=== PATIENT | female | born 1995 | race Caucasian/White ===

== ENCOUNTER 2020-08-20 02:27 | Emergency (ER) | payer OTHER ==
--- NOTE | 2020-08-20 03:06 | EDM.PDOC ---
ED HPI GENERAL MEDICAL PROBLEM - General Chief Complaint: Genitourinary Problem Stated Complaint: POSS UTI/26 WKS Time Seen by Provider: 08/20/20 02:38 Source of Information: Reports: Patient History Limitations: Reports: No Limitations - History of Present Illness INITIAL COMMENTS - FREE TEXT/NARRATIVE: Mrs. Romano is a pleasant 25-year-old woman who now presents with a complaint of dysuria, urinary frequency, and urinary urgency since midday yesterday, 08/19/2020. No associated fever or chills, nausea, vomiting, or flank pain. No prior similar symptoms. She has not taken any eony-mdf-lmdjpey or home remedies to try to treat her symptoms. The patient states that she 26 weeks gestation, her first . She states that she was diagnosed with a UTI earlier during this , but that she was asymptomatic. Here in the ED, the patient was initially found to be slightly tachycardic at 104 bpm, otherwise, she is hemodynamically stable, afebrile, saturating 99% on room air. heart tones obtained at triage are 145 bpm. Prior to midday yesterday, the patient denies having a recent fever, chills, sore throat, ear pain, nasal or sinus congestion, cough, dyspnea, chest pain, palpitations, nausea, vomiting, constipation, diarrhea, abdominal pain, urinary symptoms, recent weight gain or weight loss, recent bloody bowel movements or black bowel movements, recent joint aches, headaches, or rashes. The patient does not have a PCP. Her DRUM SANDER OFFBEARER is Dr. Berkley Solomon. Generalized Pain Score (Numeric/FACES): 6 - Related Data Allergies Allergy/AdvReac Type Severity Reaction Status Date / Time No Known Allergies Allergy Verified 08/20/20 02:39 Home Meds: Home Meds Amoxicillin/Clavulanate K [Augmentin 500-125 MG] 1 tab PO Q12H #10 tablet 08/20/20 [Rx] Past Medical History HEENT History: Reports: Impaired Vision : 1 Para: 0 Endocrine/Metabolic History: Reports: Diabetes, Gestational, Obesity/BMI 30+ Social & Family History - Tobacco Use Tobacco Use Status *Q: Never Tobacco User - Caffeine Use Caffeine Use: Reports: Coffee - Alcohol Use Alcohol Use History: No - Recreational Drug Use Recreational Drug Use: No - Living Situation & Occupation Living situation: Reports: , with Spouse 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 ED EXAM, RENAL/ - Physical Exam Exam: See Below Exam Limited By: No Limitations General Appearance: Alert, WD/WN, No Apparent Distress Eye Exam: Bilateral Eye: EOMI, Normal Inspection Ears: Normal External Exam, Hearing Grossly Normal Nose: Normal Inspection Throat/Mouth: Normal Inspection, Normal Lips, Normal Voice, No Airway Compromise Head: Atraumatic, Normocephalic Neck: Normal Inspection, Full Range of Motion Respiratory/Chest: No Respiratory Distress, Lungs Clear, Normal Breath Sounds, No Accessory Muscle Use Cardiovascular: Normal Peripheral Pulses, Regular Rate, Rhythm, No Gallop, No JVD, No Murmur, No Rub GI/Abdominal: Normal Bowel Sounds, Soft, No Distention, No Abnormal Bruit, Tender (palpation of the suprapubic region induces pressure, but not pain), Mass (gravid uterus consistent with dates) Back Exam: Normal Inspection, Full Range of Motion. No: CVA Tenderness (L), CVA Tenderness (R) Extremities: Normal Inspection, Normal Range of Motion, Normal Capillary Refill Neurological: Alert, Oriented, Normal Cognition, No Motor/Sensory Deficits Psychiatric: Normal Affect Skin Exam: Warm, Dry, Intact, Normal Color, No Rash Course - Vital Signs Last Recorded V/S: Last Vital Signs Temp 36.8 C 08/20/20 02:32 Pulse 104 H 08/20/20 02:32 Resp 16 08/20/20 02:32 BP 133/86 08/20/20 02:32 Pulse Ox 99 08/20/20 02:32 - Orders/Labs/Meds Orders: Active Orders 24 hr Category Date Time Status Heart Rate [RC] Click to Edit Care 08/20/20 02:49 Active CULTURE URINE [RM] Stat Lab 08/20/20 03:58 Ordered Labs: Laboratory Tests 08/20/20 Range/Units 03:10 Urine Color Yellow (Yellow) Urine Appearance Clear (Clear) Urine pH 7.0 (5.0-8.0) Ur Specific [place] 1.025 (1.005-1.030) Urine Protein Negative (Negative) Urine Glucose (UA) Negative (Negative) Urine Ketones Negative (Negative) Urine Occult Blood 2+ H (Negative) Urine Nitrite Negative (Negative) Urine Bilirubin Negative (Negative) Urine Urobilinogen 0.2 (0.2-1.0) Ur Leukocyte Esterase Trace H (Negative) Urine RBC 50-75 H (0-5) /hpf Urine WBC 5-10 H (0-5) /hpf Ur Squamous Epith Cells 10-20 H (0-5) /hpf Urine Bacteria Rare (FEW) /hpf Urine Mucus Not seen (FEW) /hpf Meds: Medications Discontinued Medications Generic Name Dose Route Start Last Admin Trade Name Freq PRN Reason Stop Dose Admin Amoxicillin/Clavulanate Potassium 1 tab 08/20/20 04:07 Augmentin 500 Mg\125 Mg PO 08/20/20 04:08 ONETIME STA Cefpodoxime Proxetil 100 mg 08/20/20 03:55 Vantin PO 08/20/20 03:56 ONETIME STA Phenazopyridine HCl 95 mg 08/20/20 04:03 Urinary Pain Relief PO 08/20/20 04:04 ONETIME STA - Re-Assessments/Exams Free Text/Narrative Re-Assessment/Exam: 08/20/20 02:55 As above, the patient developed dysuria, urinary frequency, and urinary urgency without fever, nausea, vomiting, or flank pain, mid-day yesterday. She is 26 weeks gestation with her first . No home treatment. heart tones were 145 at triage. Her physical exam finds only increased pressure sensation with palpation of her suprapubic region, and is otherwise unremarkable. I have ordered a urinalysis to evaluate. 08/20/20 03:58 The patient's urinalysis is remarkable for 2+ occult blood with 50-75 RBCs, trace leukocyte esterase with 5-10 WBCs, nitrate negative with rare bacteria, and 10-20 squamous epithelial cells. While there is less pyuria and bacteriuria than I would expect for the degree of the patient's symptoms, I believe it would be appropriate to treat her for a UTI. Current guidelines recommend Cefpodoxime 100 mg po BID x 5 days. In addition, I will start the patient on phenazopyridine (Pyridium, Azo), which is category B. I have ordered a urine culture. 08/20/20 04:06 Notified by Lynn WATTS that we do not have Cefpodoxime in-house. I will therefore start her on Augmentin. 08/20/20 04:15 The above plan was discussed with the patient, who is agreeable. She may take [id number] Azo, and she should stay adequately hydrated. I would like her to follow-up with the office of Dr. Solomon in 3 days to check on her urine culture results. Departure - Departure Time of Disposition: 04:09 Disposition: Home, Self-Care 01 Condition: Good Clinical Impression: UTI (urinary tract infection), and not yet delivered in third trimester - Discharge Information *PRESCRIPTION DRUG MONITORING PROGRAM REVIEWED*: Not Applicable *COPY OF PRESCRIPTION DRUG MONITORING REPORT IN PATIENT ELI: Not Applicable Prescriptions: Amoxicillin/Clavulanate K [Augmentin 500-125 MG] 1 tab PO Q12H #10 tablet Referrals: Berkley Solomon MD [Primary Care Provider] - Forms: ED Department Discharge Additional Instructions: You were seen in the emergency room for painful urination with the need to urinate often and the sensation of inadequate urination even though you just finished urinating, since midfriday. Work-up in the ER included a urinalysis, which indicates a possible urinary tract infection. A sample of your urine has been sent for a urine culture. You have been started on the antibiotic Augmentin, and a prescription for Aug mentin has been sent to the [facility], located just south and across [address] from [facility]. The pharmacy will be open between noon and 4:00 this afternoon. Take 1 tablet of Augmentin every 12 hours, starting this evening, 08/20/2020, as prescribed. Finish the entire prescription unless told otherwise by Dr. Solomon. In addition to Augmentin, you may also take the bladder pain reliever Azo, which is available [id number]. You may take 1 tablet 3 times a day, for 2 days, for a total of 6 doses. Don't forget that you received 1 dose already in the ER. Azo will turn your urine orange, which is normal. Stay adequately hydrated. It does not really matter what type of fluid you drink. Follow-up with the office of your Operators Teacher, Dr. Berkley Solomon, this coming 08/23/2020, to check on your urine culture results, to make sure that you are on the correct antibiotic. If any other problems, please do not hesitate to return to the ER. Sepsis Event Note (ED) - Evaluation Sepsis Screening Result: No Definite Risk - Focused Exam Vital Signs: Vital Signs Temp Pulse Resp BP Pulse Ox 08/20/20 02:32 36.8 C 104 H 16 133/86 99 - My Orders Last 24 Hours: My Active Orders 08/20/20 02:49 Heart Rate [RC] Click to Edit 08/20/20 03:58 CULTURE URINE [RM] Stat - Assessment/Plan Last 24 Hours: My Active Orders 08/20/20 02:49 Heart Rate [RC] Click to Edit 08/20/20 03:58 CULTURE URINE [RM] Stat
[2020-08-20] MEDS ORDERED: Phenazopyridine 95 MG Tab PO STA (04:03)
[2020-08-20] MEDS ORDERED: Amoxicillin/Clavulanate K 500-125 MG Tab PO STA (04:07)
== END 2020-08-20 04:32 | disposition home or self-care (01) ==
LOC: JD.ED 02:27
DX: O23.42 Unspecified infection of urinary tract in pregnancy, second trimester (principal); Z3A.26 26 weeks gestation of pregnancy
CPT/HCPCS: 81001; 87086; 87088; 87186; 99283; A9270

== ENCOUNTER 2020-11-06 19:04 | Inpatient (IN) | payer OTHER ==
[2020-11-06] MEDS ORDERED: Lidocaine 1% 50 ML MDV INJECT ONE (22:29)
[2020-11-06] MEDS ORDERED: Nalbuphine 10 MG/1 ML Vial IVPUSH PRN (22:29)
[2020-11-06] MEDS ORDERED: Sodium Chloride 0.9% 10 ML Syringe FLUSH PRN (22:29)
[2020-11-06] MEDS ORDERED: Calcium Carbonate 500 MG Tab.Chew PO PRN (22:29)
[2020-11-06] MEDS ORDERED: Ondansetron 4 MG/2 ML SDV IVPUSH PRN (22:29)
[2020-11-06] MEDS ORDERED: Ampicillin 2 GM in Sodium Chloride 0.9% 100 ML IV ONE (22:29)
[2020-11-06] MEDS ORDERED: Oxytocin/Lactated Ringers 10 UNIT/1,000 ML BAG IV SCH ×2 (22:30)
[2020-11-06] MEDS ORDERED: ePHEDrine 50 MG/ML SDV IVPUSH PRN (22:50)
[2020-11-06] MEDS ORDERED: diphenhydrAMINE 50 MG/ML SDV IVPUSH PRN (22:50)
[2020-11-06] MEDS: Lactated Ringers 1,000 ML IV SCH (23:24)
[2020-11-07] MEDS ORDERED: Bupivacaine 0.25% 10 ML SDV ONE
--- NOTE | 2020-11-07 00:03 | PCM.LDHP ---
L&D History of Present Illness - General Date of Service: 11/06/20 Admit Problem/Dx: Patient Status Order with Admit Dx/Problem 11/06/20 19:37 Patient Status [ADT] Routine 11/06/20 22:29 Patient Status [ADT] Routine Admission Diagnosis/Problem Admission Diagnosis/Problem Active labor - History of Present Illness Introduction:: 25 year old at 38w2 presented with decreased movement and cramping and bright red bleeding. Having contractions on monitor and appeared in early labor with discomfort. At front was afebrile. One initial elevated temperature and two elevated blood pressure readings. Subsequent blood pressures have been borderline. UA consistent with UTI making evaluation of protein difficult. PNC with myself complicated by gestational diabetes on insulin. COVID in September. 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: Endocrine/Metabolic History: Reports: Diabetes, Gestational, Obesity/BMI 30+ Social & Family History - Caffeine Use Caffeine Use: Reports: Coffee - Living Situation & Occupation Living situation: Reports: , with Spouse 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[employer]) H&P Review of Systems - Review of Systems: Review Of Systems: See Below General: Reports: No Symptoms HEENT: Reports: No Symptoms Pulmonary: Reports: No Symptoms Cardiovascular: Reports: No Symptoms Gastrointestinal: Reports: No Symptoms Genitourinary: Reports: No Symptoms Musculoskeletal: Reports: No Symptoms Skin: Reports: No Symptoms Psychiatric: Reports: No Symptoms Neurological: Reports: No Symptoms Hematologic/Lymphatic: Reports: No Symptoms Immunologic: Reports: No Symptoms L&D Exam - Exam Exam: See Below - OB Specific Contraction Intensity: Moderate Movement: Active Heart Tones: Present Heart Rate (FHR) Variability: Moderate (6-25 bmp) Presentation: Vertex - Kearns Score Kearns Score Cervix Position: Anterior Kearns Score Consistency: Soft Kearns Score Effacement: >80% Kearns Score Dilation: 3-4 cm Kearns Score Infant's Station: -1 ,0 Kearns Score Total: 11 - Exam General: Alert, Oriented HEENT: PERRLA, Conjunctiva Clear, EACs Clear, EOMI, Hearing Intact, Mucosa Moist & [place], Nares Patent, Normal Nasal Septum, Posterior Pharynx Clear, TMs Clear Neck: Supple, Trachea Midline Lungs: Clear to Auscultation Cardiovascular: Regular Rate, Regular Rhythm GI/Abdominal Exam: Normal Bowel Sounds, Soft, Non-Tender, No Organomegaly, No Distention, No Abnormal Bruit Rectal Exam: Normal Exam, Normal Rectal Tone Genitourinary: Normal external exam, Normal bimanual exam, Normal speculum exam Back Exam: Normal Inspection, Full Range of Motion Extremities: Normal Inspection, Normal Range of Motion, Non-Tender, No Pedal Edema, Normal Capillary Refill Skin: Warm, Dry, Intact Psychiatric: Alert, Normal Affect, Normal Mood - Patient Data Lab Results Last 24 hrs: Laboratory Results - last 24 hr 11/06/20 11/06/20 11/06/20 Range/Units 19:50 19:50 20:40 WBC 16.69 H (3.98-10.04) K/mm3 RBC 4.94 (3.98-5.22) M/mm3 Hgb 14.7 (11.2-15.7) gm/dl Hct 43.8 (34.1-44.9) % MCV 88.7 (79.4-94.8) fl MCH 29.8 (25.6-32.2) pg MCHC 33.6 (32.2-35.5) g/dl RDW Std Deviation 48.8 H (36.4-46.3) fL Plt Count 257 (182-369) K/mm3 MPV 11.2 (9.4-12.3) fl Neut % (Auto) 80.7 H (34.0-71.1) % Lymph % (Auto) 10.5 L (19.3-51.7) % [place] % (Auto) 8.1 (4.7-12.5) % Eos % (Auto) 0.2 L (0.7-5.8) Baso % (Auto) 0.1 (0.1-1.2) % Neut # (Auto) 13.46 H (1.56-6.13) K/mm3 Lymph # (Auto) 1.76 (1.18-3.74) K/mm3 [place] # (Auto) 1.35 H (0.24-0.36) K/mm3 Eos # (Auto) 0.04 (0.04-0.36) K/mm3 Baso # (Auto) 0.02 (0.01-0.08) K/mm3 BUN 10 (7-18) mg/dL Creatinine 0.6 (0.55-1.02) mg/dL Est Cr Clr Drug Dosing TNP Estimated GFR (MDRD) > 60 (>60) mL/min Glucose 101 (74-106) mg/dL Uric Acid 3.6 (2.6-6.0) mg/dL AST 12 L (15-37) U/L ALT 20 (14-59) U/L Lactate Dehydrogenase 224 (81-234) U/L Urine Color Yellow (Yellow) Urine Appearance Cloudy H (Clear) Urine pH 7.0 (5.0-8.0) Ur Specific [place] 1.025 (1.005-1.030) Urine Protein 2+ H (Negative) Urine Glucose (UA) Negative (Negative) Urine Ketones Negative (Negative) Urine Occult Blood 3+ H (Negative) Urine Nitrite Positive H (Negative) Urine Bilirubin Negative (Negative) Urine Urobilinogen 1.0 (0.2-1.0) Ur Leukocyte Esterase 1+ H (Negative) Urine RBC 50-75 H (0-5) /hpf Urine WBC 10-20 H (0-5) /hpf Ur Squamous Epith Cells 10-20 H (0-5) /hpf Urine Bacteria Many H (FEW) /hpf Urine Mucus Few (FEW) /hpf Ur Random Creatinine (30.0-125.0) mg/dL U Random Total Protein (0.0-11.8) mg/dL Protein/Creatinin Ratio (0-149) mg/g 11/06/20 Range/Units 20:40 WBC (3.98-10.04) K/mm3 RBC (3.98-5.22) M/mm3 Hgb (11.2-15.7) gm/dl Hct (34.1-44.9) % MCV (79.4-94.8) fl MCH (25.6-32.2) pg MCHC (32.2-35.5) g/dl RDW Std Deviation (36.4-46.3) fL Plt Count (182-369) K/mm3 MPV (9.4-12.3) fl Neut % (Auto) (34.0-71.1) % Lymph % (Auto) (19.3-51.7) % [place] % (Auto) (4.7-12.5) % Eos % (Auto) (0.7-5.8) Baso % (Auto) (0.1-1.2) % Neut # (Auto) (1.56-6.13) K/mm3 Lymph # (Auto) (1.18-3.74) K/mm3 [place] # (Auto) (0.24-0.36) K/mm3 Eos # (Auto) (0.04-0.36) K/mm3 Baso # (Auto) (0.01-0.08) K/mm3 BUN (7-18) mg/dL Creatinine (0.55-1.02) mg/dL Est Cr Clr Drug Dosing Estimated GFR (MDRD) (>60) mL/min Glucose (74-106) mg/dL Uric Acid (2.6-6.0) mg/dL AST (15-37) U/L ALT (14-59) U/L Lactate Dehydrogenase (81-234) U/L Urine Color (Yellow) Urine Appearance (Clear) Urine pH (5.0-8.0) Ur Specific [place] (1.005-1.030) Urine Protein (Negative) Urine Glucose (UA) (Negative) Urine Ketones (Negative) Urine Occult Blood (Negative) Urine Nitrite (Negative) Urine Bilirubin (Negative) Urine Urobilinogen (0.2-1.0) Ur Leukocyte Esterase (Negative) Urine RBC (0-5) /hpf Urine WBC (0-5) /hpf Ur Squamous Epith Cells (0-5) /hpf Urine Bacteria (FEW) /hpf Urine Mucus (FEW) /hpf Ur Random Creatinine 148.6 H (30.0-125.0) mg/dL U Random Total Protein 48.0 H (0.0-11.8) mg/dL Protein/Creatinin Ratio 323.0 H (0-149) mg/g Result Diagrams: 11/06/20 19:50 11/06/20 19:50 Problem List Initiated/Reviewed/Updated: Yes Orders Last 24hrs: Active Orders 24 hr Category Date Time Status Patient Status [ADT] Routine ADT 11/06/20 22:29 Active Activity as Tolerated [RC] PFP Care 11/06/20 22:29 Active Communication Order [RC] ASDIRECTED Care 11/06/20 22:29 Active Communication Order [RC] ASDIRECTED Care 11/06/20 22:51 Active Cooling Warming Measures [RC] ASDIRECTED Care 11/06/20 22:51 Active Heart Tones [RC] ASDIRECTED Care 11/06/20 22:30 Active Non Stress Test [RC] PER UNIT ROUTINE Care 11/06/20 19:37 Active Notify Provider [RC] ASDIRECTED Care 11/06/20 22:50 Active Notify Provider [RC] ASDIRECTED Care 11/06/20 22:51 Active Notify Provider [RC] PFP Care 11/06/20 22:29 Active Notify Provider [RC] PRN Care 11/06/20 22:29 Active Oxygen Therapy [RC] ASDIRECTED Care 11/06/20 22:51 Active Peripheral IV Care [RC] . DIRECTED Care 11/06/20 22:30 Active Pulse Oximetry [RC] ASDIRECTED Care 11/06/20 22:51 Active Pump Management, Intrathecal [RC] ASDIRECTED Care 11/06/20 22:33 Active Urinary Catheter Assessment [RC] ASDIRECTED Care 11/06/20 22:29 Active Vital Signs [RC] ASDIRECTED Care 11/06/20 22:51 Active Vital Signs [RC] PER UNIT ROUTINE Care 11/06/20 19:37 Active Regular Diet [DIET] Diet 11/06/20 Dinner Active CORONAVIRUS COVID-19 MARINA [MOLEC] Stat Lab 11/06/20 22:32 Ordered CULTURE URINE [RM] Stat Lab 11/06/20 20:40 Received RAPID PLASMA REAGIN,RPR [CHEM] Routine Lab 11/06/20 19:50 Received Ampicillin 1 gm Med 11/07/20 02:30 Active Sodium Chloride 0.9% [Normal Saline] 100 ml IV Q4H Bupivacaine/fentaNYL/NS [fentaNYL/Bupivacaine/NS 2 MCG- Med 11/06/20 22:50 Active 0.125% 100 ML] 100 ml EPIDUR ASDIRECTED PRN Calcium Carbonate [Tums] Med 11/06/20 22:29 Active 1,000 mg PO Q2H PRN Lactated Ringers [Ringers, Lactated] 1,000 ml Med 11/06/20 22:30 Active IV ASDIRECTED Nalbuphine [Nubain] Med 11/06/20 22:29 Active 10 mg IVPUSH Q2H PRN Ondansetron [Zofran] Med 11/06/20 22:29 Active 4 mg IVPUSH Q4H PRN Oxytocin/Lactated Ringers [Pitocin in LR 10 Units/1,000 Med 11/06/20 22:30 Active ML] 10 unit in 1,000 ml IV .CONTINUOUS Oxytocin/Lactated Ringers [Pitocin in LR 10 Units/1,000 Med 11/06/20 22:30 Active ML] 10 unit in 1,000 ml IV TITRATE Sodium Chloride 0.9% [Saline Flush] Med 11/06/20 22:29 Active 10 ml FLUSH ASDIRECTED PRN diphenhydrAMINE [Benadryl] Med 11/06/20 22:50 Active 25 mg IVPUSH Q6H PRN ePHEDrine [ePHEDrine sulfate] Med 11/06/20 22:50 Active 5 mg IVPUSH ASDIRECTED PRN fentaNYL [Sublimaze] Med 11/06/20 22:50 Active 100 mcg EPIDUR Q3H PRN Electronic Heart Tones Ext w TOCO [WOMSER] Oth 11/06/20 22:29 Ordered Routine Electronic Heart Tones Internal [WOMSER] Per Unit Oth 11/06/20 22:29 Ordered Routine PIH Panel [OM.PC] Stat Oth 11/06/20 19:37 Ordered Peripheral IV Insertion Adult [OM.PC] Routine Oth 11/06/20 22:29 Ordered Resuscitation Status Routine Resus Stat 11/06/20 19:37 Ordered Medication Orders Calcium Carbonate/Glycine (Tums) 1,000 mg PO Q2H PRN PRN Reason: Indigestion Diphenhydramine HCl (Benadryl) 25 mg IVPUSH Q6H PRN PRN Reason: pruritis Ephedrine Sulfate (Ephedrine Sulfate) 5 mg IVPUSH ASDIRECTED PRN PRN Reason: Hypotension Fentanyl (Sublimaze) 100 mcg EPIDUR Q3H PRN PRN Reason: Pain Fentanyl/Bupivacaine HCl (Fentanyl/Bupivacaine/Ns 2 Mcg-0.125% 100 Ml) 100 ml EPIDUR ASDIRECTED PRN PRN Reason: Pain Lactated Ringer's (Ringers, Lactated) 1,000 mls @ 100 mls/hr IV ASDIRECTED VICKI Last Admin: 11/06/20 23:24 Dose: 100 mls/hr Documented by: LUCA Ampicillin Sodium 1 gm/ Sodium (Chloride) 100 mls @ 200 mls/hr IV Q4H VICKI Oxytocin/Lactated Ringer's (Pitocin In Lr 10 Units/1,000 Ml) 10 unit in 1,000 mls @ 12 mls/hr IV TITRATE VICKI; Protocol Oxytocin/Lactated Ringer's (Pitocin In Lr 10 Units/1,000 Ml) 10 unit in 1,000 mls @ 500 mls/hr IV .CONTINUOUS VICKI Nalbuphine HCl (Nubain) 10 mg IVPUSH Q2H PRN PRN Reason: Pain Ondansetron HCl (Zofran) 4 mg IVPUSH Q4H PRN PRN Reason: Nausea/Vomiting Sodium Chloride (Saline Flush) 10 ml FLUSH ASDIRECTED PRN PRN Reason: Keep Vein Open Assessment/Plan Comment:: Term labor. Augment for mild pre-ecclampsia. Labs normal Sugars q1-2 hours throughout. Antibiotics (ampicillin initially) for UTI. Will transition to orals once delivered.
[2020-11-07] MEDS: Lactated Ringers 1,000 ML IV SCH ×3 (01:35→06:52)
[2020-11-07] MEDS: fentaNYL 100 MCG/2 ML SDV EPIDUR PRN ×2 (01:42→06:51)
[2020-11-07] MEDS: Bupivacaine/fentaNYL/NS 100 ML Bag EPIDUR PRN ×2 (01:42→08:16)
--- NOTE | 2020-11-07 01:57 | PCM.PREANE ---
Preanesthetic Assessment - Procedure Proposed Procedure: epidural - Anesthesia/Transfusion/Family Hx Anesthesia History: No Prior Anesthesia Family History of Anesthesia Reaction: No Transfusion History: No Prior Transfusion(s) - Review of Systems General: Fatigue Pulmonary: No Symptoms Cardiovascular: No Symptoms Gastrointestinal: Abdominal Pain (labor) Neurological: No Symptoms Other: Reports: None - Physical Assessment Vital Signs: Last Vital Signs Temp 38.3 C H 11/06/20 19:20 Pulse 113 H 11/06/20 19:20 Resp 16 11/06/20 19:20 BP 149/94 H 11/06/20 19:20 Pulse Ox 99 11/06/20 19:20 Height: 1.57 m Weight: 98.883 kg ASA Class: 2 Mental Status: Alert & Oriented x3 Airway Class: Mallampati = 2 Dentition: Reports: Normal Dentition Thyro-Mental Finger Breadths: 2 Mouth Opening Finger Breadths: 2 ROM/Head Extension: Full Lungs: Clear to Auscultation, Normal Respiratory Effort Cardiovascular: Regular Rate, Regular Rhythm - Lab Values: Laboratory Last Values WBC 16.69 K/mm3 (3.98-10.04) H 11/06/20 19:50 RBC 4.94 M/mm3 (3.98-5.22) 11/06/20 19:50 Hgb 14.7 gm/dl (11.2-15.7) 11/06/20 19:50 Hct 43.8 % (34.1-44.9) 11/06/20 19:50 MCV 88.7 fl (79.4-94.8) 11/06/20 19:50 MCH 29.8 pg (25.6-32.2) 11/06/20 19:50 MCHC 33.6 g/dl (32.2-35.5) 11/06/20 19:50 RDW Std Deviation 48.8 fL (36.4-46.3) H 11/06/20 19:50 Plt Count 257 K/mm3 (182-369) 11/06/20 19:50 MPV 11.2 fl (9.4-12.3) 11/06/20 19:50 Neut % (Auto) 80.7 % (34.0-71.1) H 11/06/20 19:50 Lymph % (Auto) 10.5 % (19.3-51.7) L 11/06/20 19:50 Sampson % (Auto) 8.1 % (4.7-12.5) 11/06/20 19:50 Eos % (Auto) 0.2 (0.7-5.8) L 11/06/20 19:50 Baso % (Auto) 0.1 % (0.1-1.2) 11/06/20 19:50 Neut # (Auto) 13.46 K/mm3 (1.56-6.13) H 11/06/20 19:50 Lymph # (Auto) 1.76 K/mm3 (1.18-3.74) 11/06/20 19:50 Sampson # (Auto) 1.35 K/mm3 (0.24-0.36) H 11/06/20 19:50 Eos # (Auto) 0.04 K/mm3 (0.04-0.36) 11/06/20 19:50 Baso # (Auto) 0.02 K/mm3 (0.01-0.08) 11/06/20 19:50 BUN 10 mg/dL (7-18) 11/06/20 19:50 Creatinine 0.6 mg/dL (0.55-1.02) 11/06/20 19:50 Est Cr Clr Drug Dosing TNP 11/06/20 19:50 Estimated GFR (MDRD) > 60 mL/min (>60) 11/06/20 19:50 Glucose 101 mg/dL (74-106) 11/06/20 19:50 Uric Acid 3.6 mg/dL (2.6-6.0) 11/06/20 19:50 AST 12 U/L (15-37) L 11/06/20 19:50 ALT 20 U/L (14-59) 11/06/20 19:50 Lactate Dehydrogenase 224 U/L (81-234) 11/06/20 19:50 Urine Color Yellow (Yellow) 11/06/20 20:40 Urine Appearance Cloudy (Clear) H 11/06/20 20:40 Urine pH 7.0 (5.0-8.0) 11/06/20 20:40 Ur Specific Dinosaur 1.025 (1.005-1.030) 11/06/20 20:40 Urine Protein 2+ (Negative) H 11/06/20 20:40 Urine Glucose (UA) Negative (Negative) 11/06/20 20:40 Urine Ketones Negative (Negative) 11/06/20 20:40 Urine Occult Blood 3+ (Negative) H 11/06/20 20:40 Urine Nitrite Positive (Negative) H 11/06/20 20:40 Urine Bilirubin Negative (Negative) 11/06/20 20:40 Urine Urobilinogen 1.0 (0.2-1.0) 11/06/20 20:40 Ur Leukocyte Esterase 1+ (Negative) H 11/06/20 20:40 Urine RBC 50-75 /hpf (0-5) H 11/06/20 20:40 Urine WBC 10-20 /hpf (0-5) H 11/06/20 20:40 Ur Squamous Epith Cells 10-20 /hpf (0-5) H 11/06/20 20:40 Urine Bacteria Many /hpf (FEW) H 11/06/20 20:40 Urine Mucus Few /hpf (FEW) 11/06/20 20:40 Ur Random Creatinine 148.6 mg/dL (30.0-125.0) H 11/06/20 20:40 U Random Total Protein 48.0 mg/dL (0.0-11.8) H 11/06/20 20:40 Protein/Creatinin Ratio 323.0 mg/g (0-149) H 11/06/20 20:40 - Allergies Allergies/Adverse Reactions: Allergies Allergy/AdvReac Type Severity Reaction Status Date / Time No Known Allergies Allergy Verified 11/06/20 23:19 - Anesthesia Plan Pre-Op Medication Ordered: None - Acknowledgements Anesthesia Type Planned: Epidural Pt an Appropriate Candidate for the Planned Anesthesia: Yes Alternatives and Risks of Anesthesia Discussed w Pt/Guardian: Yes Pt/Guardian Understands and Agrees with Anesthesia Plan: Yes PreAnesthesia Questionnaire - Past Health History Medical/Surgical History: Denies Medical/Surgical History HEENT History: Reports: Impaired Vision Gastrointestinal History: Reports: GERD 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: Endocrine/Metabolic History: Reports: Diabetes, Gestational, Obesity/BMI 30+ - SUBSTANCE USE Tobacco Use Status *Q: Never Tobacco User Second Hand Smoke Exposure: No Recreational Drug Use History: No - HOME MEDS Home Medications: Home Meds Amoxicillin/Clavulanate K [Augmentin 500-125 MG] 1 tab PO Q12H #10 tablet 10/18/20 [Rx] - CURRENT (IN HOUSE) MEDS Current Meds: Current Medications Calcium Carbonate/Glycine (Tums) 1,000 mg PO Q2H PRN PRN Reason: Indigestion Diphenhydramine HCl (Benadryl) 25 mg IVPUSH Q6H PRN PRN Reason: pruritis Ephedrine Sulfate (Ephedrine Sulfate) 5 mg IVPUSH ASDIRECTED PRN PRN Reason: Hypotension Fentanyl (Sublimaze) 100 mcg EPIDUR Q3H PRN PRN Reason: Pain Last Admin: 11/07/20 01:42 Dose: 100 mcg Documented by: Fentanyl/Bupivacaine HCl (Fentanyl/Bupivacaine/Ns 2 Mcg-0.125% 100 Ml) 100 ml EPIDUR ASDIRECTED PRN PRN Reason: Pain Last Admin: 11/07/20 01:42 Dose: 100 ml Documented by: Lactated Ringer's (Ringers, Lactated) 1,000 mls @ 100 mls/hr IV ASDIRECTED [facility] Last Admin: 11/07/20 01:35 Dose: 100 mls/hr Documented by: Ampicillin Sodium 1 gm/ Sodium (Chloride) 100 mls @ 200 mls/hr IV Q4H [facility] Oxytocin/Lactated Ringer's (Pitocin In Lr 10 Units/1,000 Ml) 10 unit in 1,000 mls @ 12 mls/hr IV TITRATE [facility]; Protocol Oxytocin/Lactated Ringer's (Pitocin In Lr 10 Units/1,000 Ml) 10 unit in 1,000 mls @ 500 mls/hr IV .CONTINUOUS [facility] Nalbuphine HCl (Nubain) 10 mg IVPUSH Q2H PRN PRN Reason: Pain Ondansetron HCl (Zofran) 4 mg IVPUSH Q4H PRN PRN Reason: Nausea/Vomiting Sodium Chloride (Saline Flush) 10 ml FLUSH ASDIRECTED PRN PRN Reason: Keep Vein Open Discontinued Medications Ampicillin Sodium 2 gm/ Sodium (Chloride) 100 mls @ 200 mls/hr IV ONETIME ONE Stop: 11/06/20 22:58 Last Admin: 11/06/20 23:23 Dose: 200 mls/hr Documented by: Lidocaine HCl (Xylocaine 1%) 20 ml INJECT ONETIME ONE Stop: 11/06/20 22:30
[2020-11-07] MEDS: Ampicillin 1 GM in Sodium Chloride 0.9% 100 ML IV SCH (03:18)
--- NOTE | 2020-11-07 06:27 | PCM.PNLD ---
Labor Progress Note - VS & Meds Vital Signs: Last Vital Signs Temp 38.3 C H 11/06/20 19:20 Pulse 113 H 11/06/20 19:20 Resp 16 11/06/20 19:20 BP 149/94 H 11/06/20 19:20 Pulse Ox 99 11/06/20 19:20 Active Medications: Current Medications Calcium Carbonate/Glycine (Tums) 1,000 mg PO Q2H PRN PRN Reason: Indigestion Diphenhydramine HCl (Benadryl) 25 mg IVPUSH Q6H PRN PRN Reason: pruritis Ephedrine Sulfate (Ephedrine Sulfate) 5 mg IVPUSH ASDIRECTED PRN PRN Reason: Hypotension Fentanyl (Sublimaze) 100 mcg EPIDUR Q3H PRN PRN Reason: Pain Last Admin: 11/07/20 01:42 Dose: 100 mcg Documented by: Fentanyl/Bupivacaine HCl (Fentanyl/Bupivacaine/Ns 2 Mcg-0.125% 100 Ml) 100 ml EPIDUR ASDIRECTED PRN PRN Reason: Pain Last Admin: 11/07/20 01:42 Dose: 100 ml Documented by: Gentamicin Sulfate (Pharmacy To Dose - Gentamicin) 1 dose .XX ASDIRECTED [facility] Lactated Ringer's (Ringers, Lactated) 1,000 mls @ 100 mls/hr IV ASDIRECTED [facility] Last Admin: 11/07/20 02:52 Dose: 100 mls/hr Documented by: Ampicillin Sodium 1 gm/ Sodium (Chloride) 100 mls @ 200 mls/hr IV Q4H [facility] Last Admin: 11/07/20 03:18 Dose: 200 mls/hr Documented by: Oxytocin/Lactated Ringer's (Pitocin In Lr 10 Units/1,000 Ml) 10 unit in 1,000 mls @ 12 mls/hr IV TITRATE [facility]ICK[facility]; Protocol Last Titration: 11/07/20 05:08 Dose: 6 munits/min, 36 mls/hr Documented by: Oxytocin/Lactated Ringer's (Pitocin In Lr 10 Units/1,000 Ml) 10 unit in 1,000 mls @ 500 mls/hr IV .CONTINUOUS [facility] Nalbuphine HCl (Nubain) 10 mg IVPUSH Q2H PRN PRN Reason: Pain Ondansetron HCl (Zofran) 4 mg IVPUSH Q4H PRN PRN Reason: Nausea/Vomiting Sodium Chloride (Saline Flush) 10 ml FLUSH ASDIRECTED PRN PRN Reason: Keep Vein Open Discontinued Medications Ampicillin Sodium 2 gm/ Sodium (Chloride) 100 mls @ 200 mls/hr IV ONETIME ONE Stop: 11/06/20 22:58 Last Admin: 11/06/20 23:23 Dose: 200 mls/hr Documented by: Gentamicin Sulfate 200 mg/ (Sodium Chloride) 105 mls @ 105 mls/hr IV ONETIME ONE Stop: 11/07/20 05:59 Last Admin: 11/07/20 04:43 Dose: 105 mls/hr Documented by: Lidocaine HCl (Xylocaine 1%) 20 ml INJECT ONETIME ONE Stop: 11/06/20 22:30 - Uterine Contractions Contraction Intensity: Moderate Uterine Resting Tone: Soft - Monitoring Heart Rate (FHR) Variability: Moderate (6-25 bmp) Strip Review: Category I - Vaginal Exam Dilation (cm): 7 Effacement (Percent): 90 Cervical Position: Midposition - Labor Progress (Free Text) Labor Progress: Doing well. Tmax 101.4 and HR at that time was elevated. Added gent for presumed chorioamnionitis. UTI as well so will watch closely for other causes/concerns of infection. Progressing well.
--- NOTE | 2020-11-07 07:00 | PCM.SN.2 ---
- Free Text/Narrative Note: 0648 In room for bolus. C/O pain 6 out of 10. Bolus wit 2ml fentanly 8ml 0.25% bupivacaine PF. Out of room at 0700. VSS no C/O.
--- NOTE | 2020-11-07 07:24 | PCM.PNLD ---
Labor Progress Note - VS & Meds Vital Signs: Last Vital Signs Temp 38.3 C H 11/06/20 19:20 Pulse 113 H 11/06/20 19:20 Resp 16 11/06/20 19:20 BP 149/94 H 11/06/20 19:20 Pulse Ox 99 11/06/20 19:20 Active Medications: Current Medications Calcium Carbonate/Glycine (Tums) 1,000 mg PO Q2H PRN PRN Reason: Indigestion Diphenhydramine HCl (Benadryl) 25 mg IVPUSH Q6H PRN PRN Reason: pruritis Ephedrine Sulfate (Ephedrine Sulfate) 5 mg IVPUSH ASDIRECTED PRN PRN Reason: Hypotension Fentanyl (Sublimaze) 100 mcg EPIDUR Q3H PRN PRN Reason: Pain Last Admin: 11/07/20 06:51 Dose: 100 mcg Documented by: Fentanyl/Bupivacaine HCl (Fentanyl/Bupivacaine/Ns 2 Mcg-0.125% 100 Ml) 100 ml EPIDUR ASDIRECTED PRN PRN Reason: Pain Last Admin: 11/07/20 01:42 Dose: 100 ml Documented by: Lactated Ringer's (Ringers, Lactated) 1,000 mls @ 100 mls/hr IV ASDIRECTED [facility] Last Admin: 11/07/20 06:52 Dose: 100 mls/hr Documented by: Oxytocin/Lactated Ringer's (Pitocin In Lr 10 Units/1,000 Ml) 10 unit in 1,000 mls @ 12 mls/hr IV TITRATE [facility]ICK[facility]; Protocol Last Titration: 11/07/20 05:08 Dose: 6 munits/min, 36 mls/hr Documented by: Oxytocin/Lactated Ringer's (Pitocin In Lr 10 Units/1,000 Ml) 10 unit in 1,000 mls @ 500 mls/hr IV .CONTINUOUS [facility] Ampicillin Sodium 2 gm/ Sodium (Chloride) 100 mls @ 200 mls/hr IV Q6H [facility] Gentamicin Sulfate 490 mg/ (Sodium Chloride) 112.25 mls @ 112.25 mls/hr IV ONETIME ONE Stop: 11/07/20 13:01 Nalbuphine HCl (Nubain) 10 mg IVPUSH Q2H PRN PRN Reason: Pain Ondansetron HCl (Zofran) 4 mg IVPUSH Q4H PRN PRN Reason: Nausea/Vomiting Sodium Chloride (Saline Flush) 10 ml FLUSH ASDIRECTED PRN PRN Reason: Keep Vein Open Discontinued Medications Gentamicin Sulfate (Pharmacy To Dose - Gentamicin) 1 dose .XX ASDIRECTED [facility] Ampicillin Sodium 2 gm/ Sodium (Chloride) 100 mls @ 200 mls/hr IV ONETIME ONE Stop: 11/06/20 22:58 Last Admin: 11/06/20 23:23 Dose: 200 mls/hr Documented by: Ampicillin Sodium 1 gm/ Sodium (Chloride) 100 mls @ 200 mls/hr IV Q4H [facility] Last Admin: 11/07/20 03:18 Dose: 200 mls/hr Documented by: Gentamicin Sulfate 200 mg/ (Sodium Chloride) 105 mls @ 105 mls/hr IV ONETIME ONE Stop: 11/07/20 05:59 Last Admin: 11/07/20 04:43 Dose: 105 mls/hr Documented by: Lidocaine HCl (Xylocaine 1%) 20 ml INJECT ONETIME ONE Stop: 11/06/20 22:30 - Uterine Contractions Uterine Monitoring Mode: External [place] Contraction Intensity: Strong Uterine Resting Tone: Soft - Monitoring Monitor Mode: External Ultrasound Heart Rate (FHR) Baseline: 140 Heart Rate (FHR) Variability: Moderate (6-25 bmp) Accelerations: Present, 15x15 Decelerations: Early, Variable Strip Review: Category II - Vaginal Exam Dilation (cm): 9 Effacement (Percent): 90 Station: 1 Cervical Position: Anterior - Labor Progress (Free Text) Labor Progress: Assumed care of patient at [address] Solomon. * Patient making good cervical change. Will reassess again in another 30-45 minutes. If complete will start pushing. * Patient started on Amp/Gent for fever in labor. Fever prior to ROM. Urine culture with preliminary GNR. Will continue to monitor closely. Will need continued antibiotic therapy after delivery. * BP's continue to be mild range. Monitor for findings of severe disease * GODMA2. First blood sugar last night very elevated, but last two both less than 120. Continue to monitor q2
[2020-11-07] MEDS ORDERED: Ampicillin 2 GM in Sodium Chloride 0.9% 100 ML IV SCH (07:30)
[2020-11-07] MEDS ORDERED: Acetaminophen 325 MG Tab PO ONE ×2 (09:13)
--- NOTE | 2020-11-07 10:12 | PCM.DEL ---
L & D Note - General Info Date of Service: 11/07/20 - Delivery Note Labor: Augmented by ARM, Augmented by Oxytocin Delivery Outcome: Livebirth Infant Delivery Method: Spontaneous Vaginal Delivery-Single Delivery Mode: Spontaneous Presentation: Left Occiput Anterior (GLENNY) Nuchal Cord: None Anesthesia Type: Epidural Amniotic Fluid Description: Meconium Stained Episiotomy Type: None Laceration: 1st Degree, Perineal Placenta: Intact, Spontaneous Cord: 3 Vessels Estimated Blood Loss: 100 Resuscitation Needed: Yes : Bulb Syringe, Stimulated, Warmed, [place] Used, Warmer Used Delivery Comments (Free Text/Narrative):: Patient found to be complete and began pushing. With maternal pushing effort head delivered from an GLENNY presentation. No nuchal cord present. With gentle downward traction the shoulders and body delivered. Infant placed on maternal abdomen. Cord clamped and cut. Baby taken to warmer for assessment. Cord gas segment obtained. Placenta allowed time to separate and expelled intact. Inspection of perineum with small, 1st degree, perineal laceration. Hemostatic and so not repaired - General Info Date of Service: 11/07/20 - Patient Data Vitals - Most Recent: Last Vital Signs Temp 37.8 C 11/07/20 09:30 Pulse 113 H 11/06/20 19:20 Resp 16 11/06/20 19:20 BP 149/94 H 11/06/20 19:20 Pulse Ox 99 11/06/20 19:20 Weight - Most Recent: 98.883 kg - Problem List & Annotations (1) 38 weeks gestation of SNOMED Code(s): 65696772 Code(s): Z3A.38 - 38 WEEKS GESTATION OF Status: Acute Current Visit: Yes (2) Fever SNOMED Code(s): 905237687 Code(s): R50.9 - FEVER, UNSPECIFIED Status: Acute Current Visit: Yes (3) UTI (urinary tract infection) SNOMED Code(s): 58025998 Code(s): N39.0 - URINARY TRACT INFECTION, SITE NOT SPECIFIED Status: Acute Current Visit: No (4) Preeclampsia SNOMED Code(s): 962364108 Code(s): O14.90 - UNSPECIFIED PRE-ECLAMPSIA, UNSPECIFIED TRIMESTER Status: Acute Current Visit: Yes (5) Gestational diabetes requiring insulin SNOMED Code(s): 64941803, 770730614 Code(s): O24.414 - GESTATIONAL DIABETES IN , INSULIN CONTROLLED Status: Acute Current Visit: Yes (6) Vaginal delivery SNOMED Code(s): 205318165 Code(s): O80 - ENCOUNTER FOR FULL-TERM UNCOMPLICATED DELIVERY Status: Acute Current Visit: Yes - Problem List Review Problem List Initiated/Reviewed/Updated: Yes - My Orders Last 24 Hours: My Active Orders 11/07/20 07:30 Ampicillin 2 gm Sodium Chloride 0.9% [Normal Saline] 100 ml IV Q6H 11/07/20 13:00 Gentamicin 490 mg Sodium Chloride 0.9% [Normal Saline] 100 ml IV ONETIME - Assessment Assessment:: PPD#0 - Plan Plan:: * Routine cares * Breast feeding GODMA2 * Fasting blood sugar in AM. * 2hr GTT at 6 weeks Preeclampsia without severe features * Monitor BP's closely Fever * Patient with recurrent fever, prior to ROM. Was treated with Amp/Gent in labor. Urine culture with GNR. Wound not necessarily expect acute cystitis to cause such recurrent elevations in temperature and so will be conservative and treat with Ceftriaxone for possible impending pyelonephritis (even though patient without flank pain). First dose today
[2020-11-07] MEDS ORDERED: Acetaminophen 325 MG Tab PO PRN (10:16)
[2020-11-07] MEDS ORDERED: Docusate Sodium 100 MG Cap PO PRN (10:16)
[2020-11-07] MEDS ORDERED: Benzocaine/Menthol 20%-0.5% Spray 56 GM Canister TOP PRN (10:16)
[2020-11-07] MEDS ORDERED: Witch Hazel Medicated Pads 40/Jar TOP PRN (10:16)
[2020-11-07] MEDS ORDERED: Ibuprofen 600 MG Tab PO PRN (10:16)
[2020-11-07] MEDS: cefTRIAXone 1 GM in Sodium Chloride 0.9% 100 ML IV SCH (12:04)
[2020-11-08] MEDS: Ampicillin 1 GM in Sodium Chloride 0.9% 100 ML IV SCH (04:14)
--- NOTE | 2020-11-08 07:00 | PCM.PNPP ---
- General Info Date of Service: 11/08/20 Functional Status: Reports: Pain Controlled, Tolerating Diet, Ambulating, Urinating - Review of Systems General: Reports: No Symptoms Pulmonary: Reports: No Symptoms Cardiovascular: Reports: No Symptoms Gastrointestinal: Reports: No Symptoms. Denies: Abdominal Pain Genitourinary: Reports: No Symptoms. Denies: Flank Pain Musculoskeletal: Reports: No Symptoms Neurological: Reports: No Symptoms - Patient Data Vital Signs - Most Recent: Last Vital Signs Temp 36.8 C 11/08/20 02:14 Pulse 96 11/08/20 02:14 Resp 14 11/08/20 02:14 BP 122/71 11/08/20 02:14 Pulse Ox 95 11/08/20 02:14 Weight - Most Recent: 98.883 kg I&O - Last 24 Hours: Intake & Output 11/07/20 11/08/20 11/08/20 22:59 06:59 14:59 Intake Total 5725 Balance 5725 Lab Results - Last 24 Hours: Laboratory Results - last 24 hr 11/06/20 11/07/20 11/07/20 Range/Units 19:50 07:16 08:21 POC Glucose 107 H 118 H (70-105) mg/dL RPR Non-reactive (NONREACTIVE) 11/08/20 Range/Units 06:06 POC Glucose 84 (70-105) mg/dL RPR (NONREACTIVE) Micro Results - Last 24 Hours: Microbiology 11/06/20 20:40 Urine Culture - Preliminary Urine, Voided Gram Negative Rods Med Orders - Current: Current Medications Acetaminophen (Tylenol) 650 mg PO Q4H PRN PRN Reason: mild pain or fever Last Admin: 11/07/20 20:39 Dose: 650 mg Documented by: Benzocaine/Menthol (Dermoplast Pain Relief [place]) 0 gm TOP ASDIRECTED PRN PRN Reason: Perineal Comfort Measure Docusate Sodium (Colace) 100 mg PO BID PRN PRN Reason: Constipation Ceftriaxone Sodium 1 gm/ (Sodium Chloride) 100 mls @ 200 mls/hr IV Q24H [facility] Last Admin: 11/07/20 12:04 Dose: 200 mls/hr Documented by: Ibuprofen (Motrin) 600 mg PO Q6H PRN PRN Reason: Mild pain or fever Witch Julissa (Tucks) 1 pad TOP ASDIRECTED PRN PRN Reason: Perineal Comfort Measure Last Admin: 11/07/20 12:53 Dose: 1 tub Documented by: Discontinued Medications Acetaminophen (Tylenol) 325 mg PO NOW ONE Stop: 11/07/20 09:14 Last Admin: 11/07/20 09:30 Dose: 325 mg Documented by: Acetaminophen (Tylenol) 650 mg PO NOW ONE Stop: 11/07/20 09:14 Last Admin: 11/07/20 09:30 Dose: 650 mg Documented by: Bupivacaine HCl (Sensorcaine-Mpf 0.25%) 20 ml .ROUTE .STK-MED ONE Stop: 11/07/20 00:01 Calcium Carbonate/Glycine (Tums) 1,000 mg PO Q2H PRN PRN Reason: Indigestion Diphenhydramine HCl (Benadryl) 25 mg IVPUSH Q6H PRN PRN Reason: pruritis Ephedrine Sulfate (Ephedrine Sulfate) 5 mg IVPUSH ASDIRECTED PRN PRN Reason: Hypotension Fentanyl (Sublimaze) 100 mcg EPIDUR Q3H PRN PRN Reason: Pain Last Admin: 11/07/20 06:51 Dose: 100 mcg Documented by: Fentanyl/Bupivacaine HCl (Fentanyl/Bupivacaine/Ns 2 Mcg-0.125% 100 Ml) 100 ml EPIDUR ASDIRECTED PRN PRN Reason: Pain Last Admin: 11/07/20 08:16 Dose: 100 ml Documented by: Gentamicin Sulfate (Pharmacy To Dose - Gentamicin) 1 dose .XX ASDIRECTED [facility] Lactated Ringer's (Ringers, Lactated) 1,000 mls @ 100 mls/hr IV ASDIRECTED [facility] Last Admin: 11/07/20 06:52 Dose: 100 mls/hr Documented by: Ampicillin Sodium 2 gm/ Sodium (Chloride) 100 mls @ 200 mls/hr IV ONETIME ONE Stop: 11/06/20 22:58 Last Admin: 11/06/20 23:23 Dose: 200 mls/hr Documented by: Ampicillin Sodium 1 gm/ Sodium (Chloride) 100 mls @ 200 mls/hr IV Q4H [facility] Last Admin: 11/08/20 04:14 Dose: Not Given Documented by: Oxytocin/Lactated Ringer's (Pitocin In Lr 10 Units/1,000 Ml) 10 unit in 1,000 mls @ 12 mls/hr IV TITRATE [facility]; Protocol Last Titration: 11/07/20 05:08 Dose: 6 munits/min, 36 mls/hr Documented by: Oxytocin/Lactated Ringer's (Pitocin In Lr 10 Units/1,000 Ml) 10 unit in 1,000 mls @ 500 mls/hr IV .CONTINUOUS [facility] Gentamicin Sulfate 200 mg/ (Sodium Chloride) 105 mls @ 105 mls/hr IV ONETIME ONE Stop: 11/07/20 05:59 Last Admin: 11/07/20 04:43 Dose: 105 mls/hr Documented by: Ampicillin Sodium 2 gm/ Sodium (Chloride) 100 mls @ 200 mls/hr IV Q6H [facility] Last Admin: 11/07/20 07:38 Dose: 200 mls/hr Documented by: Gentamicin Sulfate 490 mg/ (Sodium Chloride) 112.25 mls @ 112.25 mls/hr IV ONETIME ONE Stop: 11/07/20 13:01 Lidocaine HCl (Xylocaine 1%) 20 ml INJECT ONETIME ONE Stop: 11/06/20 22:30 Last Admin: 11/08/20 04:15 Dose: Not Given Documented by: Nalbuphine HCl (Nubain) 10 mg IVPUSH Q2H PRN PRN Reason: Pain Ondansetron HCl (Zofran) 4 mg IVPUSH Q4H PRN PRN Reason: Nausea/Vomiting Sodium Chloride (Saline Flush) 10 ml FLUSH ASDIRECTED PRN PRN Reason: Keep Vein Open - Infant Interaction Disposition, : [place] in Room with Family Interaction: Holding Infant Feeding: Attempted ; Nursed Fair/Poor Support Person: - Recovery Exam Fundal Tone: Firm Fundal Level: At Umbilicus Fundal Placement: Midline Lochia Amount: Small Lochia Color: Rubra/Red Perineum Description: Edematous Other Perinuem Description: 1st degree without repair Episiotomy/Laceration: Approximated Bladder Status: Voiding Urinary Elimination: Voided - Exam General: Alert, Oriented, Cooperative GI/Abdominal Exam: Soft, Non-Tender Extremities: Normal Inspection - Problem List & Annotations (1) 38 weeks gestation of SNOMED Code(s): 67008898 Code(s): Z3A.38 - 38 WEEKS GESTATION OF Status: Acute Current Visit: Yes (2) Fever SNOMED Code(s): 116776701 Code(s): R50.9 - FEVER, UNSPECIFIED Status: Acute Current Visit: Yes (3) UTI (urinary tract infection) SNOMED Code(s): 94738537 Code(s): N39.0 - URINARY TRACT INFECTION, SITE NOT SPECIFIED Status: Acute Current Visit: No (4) Preeclampsia SNOMED Code(s): 437906877 Code(s): O14.90 - UNSPECIFIED PRE-ECLAMPSIA, UNSPECIFIED TRIMESTER Status: Acute Current Visit: Yes (5) Gestational diabetes requiring insulin SNOMED Code(s): 51279460, 429256107 Code(s): O24.414 - GESTATIONAL DIABETES IN , INSULIN CONTROLLED Status: Acute Current Visit: Yes (6) Vaginal delivery SNOMED Code(s): 072049423 Code(s): O80 - ENCOUNTER FOR FULL-TERM UNCOMPLICATED DELIVERY Status: Acute Current Visit: Yes - Problem List Review Problem List Initiated/Reviewed/Updated: Yes - My Orders Last 24 Hours: My Active Orders 11/07/20 10:16 Acetaminophen [TylenoL] 650 mg PO Q4H PRN Benzocaine/Menthol [Dermoplast Pain Relief [place]] See Dose Instructions TOP ASDIRECTED PRN Docusate Sodium [Colace] 100 mg PO BID PRN Ibuprofen [Motrin] 600 mg PO Q6H PRN cefTRIAXone [Rocephin] 1 gm Sodium Chloride 0.9% [Normal Saline] 100 ml IV Q2 4H witch Julissa [Tucks] 1 pad TOP ASDIRECTED PRN Heat Therapy [OM.PC] PRN 11/07/20 10:16 Activity as Tolerated [RC] PER UNIT ROUTINE Vital Signs [RC] ,15,21,03 Assess Lochia [WOMSER] Per Unit Routine Assess Uterine Involution [WOMSER] Per Unit Routine Breast Pump [WOMSER] Per Unit Routine Ice Therapy [OM.PC] Per Unit Routine Perineal Care [OM.PC] Per Unit Routine Peripheral IV Discontinue [OM.PC] Routine Sitz Bath [OM.PC] Per Unit Routine 11/07/20 Lunch Regular Diet [DIET] 11/08/20 05:00 Blood Glucose Check, Bedside [RC] 0600 11/08/20 10:16 Heat Therapy [OM.PC] PRN - Assessment Assessment:: PPD#1 - Plan Plan:: * Routine cares * Breast feeding GODMA2 * Fasting blood sugar this AM normal, no further monitoring needed in hospital * 2hr GTT at 6 weeks Preeclampsia without severe features * Monitor BP's closely, have been normal Fever - seems to be resolved * Continue Ceftriaxone for now
--- NOTE | 2020-11-08 07:53 | PCM48HPAN ---
Post Anesthesia Note - EVALUATION WITHIN 48HRS OF ANESTHETIC Vital Signs in Normal Range: Yes Patient Participated in Evaluation: Yes Respiratory Function Stable: Yes Airway Patent: Yes Cardiovascular Function Stable: Yes Hydration Status Stable: Yes Pain Control Satisfactory: Yes Nausea and Vomiting Control Satisfactory: Yes Mental Status Recovered: Yes Vital Signs: Last Vital Signs Temp 36.8 C 11/08/20 02:14 Pulse 96 11/08/20 02:14 Resp 14 11/08/20 02:14 BP 122/71 11/08/20 02:14 Pulse Ox 95 11/08/20 02:14 - COMMENTS/OBSERVATIONS Free Text/Narrative:: no anesthesia complications noted
[2020-11-08] MEDS: cefTRIAXone 1 GM in Sodium Chloride 0.9% 100 ML IV SCH (10:39)
--- NOTE | 2020-11-09 05:47 | PCM.DCSUM1 ---
Discharge Summary - Discharge Data Discharge Date: 11/09/20 Discharge Disposition: Home, Self-Care 01 Condition: Good - Referral to Home Health Primary Care Physician: Berkley Gunn MD - Discharge Diagnosis/Problem(s) (1) 38 weeks gestation of SNOMED Code(s): 67698318 ICD Code: Z3A.38 - 38 WEEKS GESTATION OF Status: Acute (2) Fever SNOMED Code(s): 973943019 ICD Code: R50.9 - FEVER, UNSPECIFIED Status: Acute Qualifiers: Fever type: unspecified Qualified Code(s): R50.9 - Fever, unspecified (3) UTI (urinary tract infection) SNOMED Code(s): 78083637 ICD Code: N39.0 - URINARY TRACT INFECTION, SITE NOT SPECIFIED Status: Acute Qualifiers: Urinary tract infection type: acute cystitis Hematuria presence: with hematuria Qualified Code(s): N30.01 - Acute cystitis with hematuria (4) Preeclampsia SNOMED Code(s): 761292394 ICD Code: O14.90 - UNSPECIFIED PRE-ECLAMPSIA, UNSPECIFIED TRIMESTER Status: Acute Qualifiers: Trimester: third trimester Qualified Code(s): O14.93 - Unspecified pre-eclampsia, third trimester (5) Gestational diabetes requiring insulin SNOMED Code(s): 53793863, 690173168 ICD Code: O24.414 - GESTATIONAL DIABETES IN , INSULIN CONTROLLED Status: Acute (6) Vaginal delivery SNOMED Code(s): 928590120 ICD Code: O80 - ENCOUNTER FOR FULL-TERM UNCOMPLICATED DELIVERY Status: Acute - Patient Summary/Data Complications: None Consults: None Recommended Follow-up Testing/Procedures: Follow up in 1-[address] Gunn [facility] Course: 25 y/o at 38 2/7 wks presented with pain and slight vaginal bleeding. Found to be febrile and with few mild range BP's. Was admitted and augmented with pitocin and AROM. Was also initially started on Ampicillin for concerns of UTI. Continued to be febrile and so gentamicin added for broader coverage. She did undergo an uncomplicated > was afebrile, but kept on Ceftriaxone. Was discharged to complete course of Bactrim once sensitives to culture noted (no longer breast feeding by that time). BP's normal to mild range. Was discharged home on PPD#2 - Patient Instructions Diet: Regular Diet as Tolerated Activity: As Tolerated Activity, Other: Pelvic rest for 6 weeks Driving: May Drive Today Showering/Bathing: May Shower Showering/Bathing, Other: May Bathe Notify Provider of: Fever, Increased Pain, Swelling and Redness, Drainage, Nausea and/or Vomiting - Discharge Plan *PRESCRIPTION DRUG MONITORING PROGRAM REVIEWED*: No *COPY OF PRESCRIPTION DRUG MONITORING REPORT IN PATIENT ELI: No Prescriptions/Med Rec: Sulfamethoxazole/Trimethoprim [Bactrim Ds Tablet] 1 each PO Q12HR #6 tablet Home Medications: Home Meds Docusate Sodium [Colace] 100 mg PO BID PRN cap 11/08/20 [Rx] Ibuprofen [Motrin] 600 mg PO Q6H PRN tablet 11/08/20 [Rx] Sulfamethoxazole/Trimethoprim [Bactrim Ds Tablet] 1 each PO Q12HR #6 tablet 11/09/20 [Rx] Patient Handouts: and Low Milk Supply, [id number], Antibiotic Medicine, Adult, [id number], Breast Pumping Tips, [id number], Tips for a Good Latch, [id number], Care After Vaginal Delivery Referrals: Berkley Gunn MD [Primary Care Provider] - ([address] Gunn for check ) - Discharge Summary/Plan Comment DC Time >30 min.: No - Patient Data Vitals - Most Recent: Last Vital Signs Temp 36.7 C 11/09/20 02:18 Pulse 97 11/09/20 02:18 Resp 14 11/09/20 02:18 BP 119/59 L 11/09/20 02:18 Pulse Ox 96 11/09/20 02:18 Weight - Most Recent: 98.883 kg I&O - Last 24 hours: Intake & Output 11/08/20 11/08/20 11/09/20 14:59 22:59 06:59 Intake Total 240 Balance 240 Lab Results - Last 24 hrs: Laboratory Results - last 24 hr 11/08/20 Range/Units 06:06 POC Glucose 84 (70-105) mg/dL MIKAYLA Results - Last 24 hrs: Microbiology 11/06/20 20:40 Urine Culture - Final Urine, Voided Enterobacter Aerogenes Med Orders - Current: Current Medications Acetaminophen (Tylenol) 650 mg PO Q4H PRN PRN Reason: mild pain or fever Last Admin: 11/07/20 20:39 Dose: 650 mg Documented by: Benzocaine/Menthol (Dermoplast Pain Relief [place]) 0 gm TOP ASDIRECTED PRN PRN Reason: Perineal Comfort Measure Docusate Sodium (Colace) 100 mg PO BID PRN PRN Reason: Constipation Ibuprofen (Motrin) 600 mg PO Q6H PRN PRN Reason: Mild pain or fever Witch Bridget (Tucks) 1 pad TOP ASDIRECTED PRN PRN Reason: Perineal Comfort Measure Last Admin: 11/07/20 12:53 Dose: 1 tub Documented by: Discontinued Medications Acetaminophen (Tylenol) 325 mg PO NOW ONE Stop: 11/07/20 09:14 Last Admin: 11/07/20 09:30 Dose: 325 mg Documented by: Acetaminophen (Tylenol) 650 mg PO NOW ONE Stop: 11/07/20 09:14 Last Admin: 11/07/20 09:30 Dose: 650 mg Documented by: Bupivacaine HCl (Sensorcaine-Mpf 0.25%) 20 ml .ROUTE .STK-MED ONE Stop: 11/07/20 00:01 Calcium Carbonate/Glycine (Tums) 1,000 mg PO Q2H PRN PRN Reason: Indigestion Diphenhydramine HCl (Benadryl) 25 mg IVPUSH Q6H PRN PRN Reason: pruritis Ephedrine Sulfate (Ephedrine Sulfate) 5 mg IVPUSH ASDIRECTED PRN PRN Reason: Hypotension Fentanyl (Sublimaze) 100 mcg EPIDUR Q3H PRN PRN Reason: Pain Last Admin: 11/07/20 06:51 Dose: 100 mcg Documented by: Fentanyl/Bupivacaine HCl (Fentanyl/Bupivacaine/Ns 2 Mcg-0.125% 100 Ml) 100 ml EPIDUR ASDIRECTED PRN PRN Reason: Pain Last Admin: 11/07/20 08:16 Dose: 100 ml Documented by: Gentamicin Sulfate (Pharmacy To Dose - Gentamicin) 1 dose .XX ASDIRECTED [facility] Lactated Ringer's (Ringers, Lactated) 1,000 mls @ 100 mls/hr IV ASDIRECTED VICKI Last Admin: 11/07/20 06:52 Dose: 100 mls/hr Documented by: Ampicillin Sodium 2 gm/ Sodium (Chloride) 100 mls @ 200 mls/hr IV ONETIME ONE Stop: 11/06/20 22:58 Last Admin: 11/06/20 23:23 Dose: 200 mls/hr Documented by: Ampicillin Sodium 1 gm/ Sodium (Chloride) 100 mls @ 200 mls/hr IV Q4H [facility] Last Admin: 11/08/20 04:14 Dose: Not Given Documented by: Oxytocin/Lactated Ringer's (Pitocin In Lr 10 Units/1,000 Ml) 10 unit in 1,000 mls @ 12 mls/hr IV TITRATE VICKI; Protocol Last Titration: 11/07/20 05:08 Dose: 6 munits/min, 36 mls/hr Documented by: Oxytocin/Lactated Ringer's (Pitocin In Lr 10 Units/1,000 Ml) 10 unit in 1,000 mls @ 500 mls/hr IV .CONTINUOUS VICKI Gentamicin Sulfate 200 mg/ (Sodium Chloride) 105 mls @ 105 mls/hr IV ONETIME ONE Stop: 11/07/20 05:59 Last Admin: 11/07/20 04:43 Dose: 105 mls/hr Documented by: Ampicillin Sodium 2 gm/ Sodium (Chloride) 100 mls @ 200 mls/hr IV Q6H [facility] Last Admin: 11/07/20 07:38 Dose: 200 mls/hr Documented by: Gentamicin Sulfate 490 mg/ (Sodium Chloride) 112.25 mls @ 112.25 mls/hr IV ONETIME ONE Stop: 11/07/20 13:01 Ceftriaxone Sodium 1 gm/ (Sodium Chloride) 100 mls @ 200 mls/hr IV Q24H [facility] Last Admin: 11/08/20 10:39 Dose: 200 mls/hr Documented by: Lidocaine HCl (Xylocaine 1%) 20 ml INJECT ONETIME ONE Stop: 11/06/20 22:30 Last Admin: 11/08/20 04:15 Dose: Not Given Documented by: Nalbuphine HCl (Nubain) 10 mg IVPUSH Q2H PRN PRN Reason: Pain Ondansetron HCl (Zofran) 4 mg IVPUSH Q4H PRN PRN Reason: Nausea/Vomiting Sodium Chloride (Saline Flush) 10 ml FLUSH ASDIRECTED PRN PRN Reason: Keep Vein Open
--- NOTE | 2020-11-09 05:47 | PCM.PNPP ---
- General Info Date of Service: 11/09/20 Functional Status: Reports: Pain Controlled, Tolerating Diet, Ambulating, Urinating - Review of Systems General: Reports: No Symptoms. Denies: Fever Pulmonary: Reports: No Symptoms Cardiovascular: Reports: No Symptoms Gastrointestinal: Reports: No Symptoms Genitourinary: Reports: No Symptoms Musculoskeletal: Reports: No Symptoms - Patient Data Vital Signs - Most Recent: Last Vital Signs Temp 36.7 C 11/09/20 02:18 Pulse 97 11/09/20 02:18 Resp 14 11/09/20 02:18 BP 119/59 L 11/09/20 02:18 Pulse Ox 96 11/09/20 02:18 Weight - Most Recent: 98.883 kg I&O - Last 24 Hours: Intake & Output 11/08/20 11/08/20 11/09/20 14:59 22:59 06:59 Intake Total 240 Balance 240 Lab Results - Last 24 Hours: Laboratory Results - last 24 hr 11/08/20 Range/Units 06:06 POC Glucose 84 (70-105) mg/dL Micro Results - Last 24 Hours: Microbiology 11/06/20 20:40 Urine Culture - Final Urine, Voided Enterobacter Aerogenes Med Orders - Current: Current Medications Acetaminophen (Tylenol) 650 mg PO Q4H PRN PRN Reason: mild pain or fever Last Admin: 11/07/20 20:39 Dose: 650 mg Documented by: Benzocaine/Menthol (Dermoplast Pain Relief [place]) 0 gm TOP ASDIRECTED PRN PRN Reason: Perineal Comfort Measure Docusate Sodium (Colace) 100 mg PO BID PRN PRN Reason: Constipation Ibuprofen (Motrin) 600 mg PO Q6H PRN PRN Reason: Mild pain or fever Witch Bridget (Tucks) 1 pad TOP ASDIRECTED PRN PRN Reason: Perineal Comfort Measure Last Admin: 11/07/20 12:53 Dose: 1 tub Documented by: Discontinued Medications Acetaminophen (Tylenol) 325 mg PO NOW ONE Stop: 11/07/20 09:14 Last Admin: 11/07/20 09:30 Dose: 325 mg Documented by: Acetaminophen (Tylenol) 650 mg PO NOW ONE Stop: 11/07/20 09:14 Last Admin: 11/07/20 09:30 Dose: 650 mg Documented by: Bupivacaine HCl (Sensorcaine-Mpf 0.25%) 20 ml .ROUTE .STK-MED ONE Stop: 11/07/20 00:01 Calcium Carbonate/Glycine (Tums) 1,000 mg PO Q2H PRN PRN Reason: Indigestion Diphenhydramine HCl (Benadryl) 25 mg IVPUSH Q6H PRN PRN Reason: pruritis Ephedrine Sulfate (Ephedrine Sulfate) 5 mg IVPUSH ASDIRECTED PRN PRN Reason: Hypotension Fentanyl (Sublimaze) 100 mcg EPIDUR Q3H PRN PRN Reason: Pain Last Admin: 11/07/20 06:51 Dose: 100 mcg Documented by: Fentanyl/Bupivacaine HCl (Fentanyl/Bupivacaine/Ns 2 Mcg-0.125% 100 Ml) 100 ml EPIDUR ASDIRECTED PRN PRN Reason: Pain Last Admin: 11/07/20 08:16 Dose: 100 ml Documented by: Gentamicin Sulfate (Pharmacy To Dose - Gentamicin) 1 dose .XX ASDIRECTED VICKI Lactated Ringer's (Ringers, Lactated) 1,000 mls @ 100 mls/hr IV ASDIRECTED VICKI Last Admin: 11/07/20 06:52 Dose: 100 mls/hr Documented by: Ampicillin Sodium 2 gm/ Sodium (Chloride) 100 mls @ 200 mls/hr IV ONETIME ONE Stop: 11/06/20 22:58 Last Admin: 11/06/20 23:23 Dose: 200 mls/hr Documented by: Ampicillin Sodium 1 gm/ Sodium (Chloride) 100 mls @ 200 mls/hr IV Q4H [facility] Last Admin: 11/08/20 04:14 Dose: Not Given Documented by: Oxytocin/Lactated Ringer's (Pitocin In Lr 10 Units/1,000 Ml) 10 unit in 1,000 mls @ 12 mls/hr IV TITRATE VICKI; Protocol Last Titration: 11/07/20 05:08 Dose: 6 munits/min, 36 mls/hr Documented by: Oxytocin/Lactated Ringer's (Pitocin In Lr 10 Units/1,000 Ml) 10 unit in 1,000 mls @ 500 mls/hr IV .CONTINUOUS VICKI Gentamicin Sulfate 200 mg/ (Sodium Chloride) 105 mls @ 105 mls/hr IV ONETIME ONE Stop: 11/07/20 05:59 Last Admin: 11/07/20 04:43 Dose: 105 mls/hr Documented by: Ampicillin Sodium 2 gm/ Sodium (Chloride) 100 mls @ 200 mls/hr IV Q6H [facility] Last Admin: 11/07/20 07:38 Dose: 200 mls/hr Documented by: Gentamicin Sulfate 490 mg/ (Sodium Chloride) 112.25 mls @ 112.25 mls/hr IV ONETIME ONE Stop: 11/07/20 13:01 Ceftriaxone Sodium 1 gm/ (Sodium Chloride) 100 mls @ 200 mls/hr IV Q24H [facility] Last Admin: 11/08/20 10:39 Dose: 200 mls/hr Documented by: Lidocaine HCl (Xylocaine 1%) 20 ml INJECT ONETIME ONE Stop: 11/06/20 22:30 Last Admin: 11/08/20 04:15 Dose: Not Given Documented by: Nalbuphine HCl (Nubain) 10 mg IVPUSH Q2H PRN PRN Reason: Pain Ondansetron HCl (Zofran) 4 mg IVPUSH Q4H PRN PRN Reason: Nausea/Vomiting Sodium Chloride (Saline Flush) 10 ml FLUSH ASDIRECTED PRN PRN Reason: Keep Vein Open - Interaction Disposition, : in Room with Family Infant Interaction: Holding Infant Feeding: Other (see below) (Plans to switch to formula feeding ) Support Person: - Recovery Exam Fundal Tone: Firm Fundal Level: 2 Fingerbreadths Below Umbilicus Fundal Placement: Midline Lochia Amount: Small Lochia Color: Rubra/Red Perineum Description: Other (see below) Other Perinuem Description: 1st degree without repair Episiotomy/Laceration: None Bladder Status: Voiding Urinary Elimination: Voided - Exam General: Alert, Oriented, Cooperative GI/Abdominal Exam: Soft, Non-Tender Extremities: Normal Inspection - Problem List & Annotations (1) 38 weeks gestation of SNOMED Code(s): 54113197 Code(s): Z3A.38 - 38 WEEKS GESTATION OF Status: Acute (2) Fever SNOMED Code(s): 880219137 Code(s): R50.9 - FEVER, UNSPECIFIED Status: Acute Qualifiers: Fever type: unspecified Qualified Code(s): R50.9 - Fever, unspecified (3) UTI (urinary tract infection) SNOMED Code(s): 24886484 Code(s): N39.0 - URINARY TRACT INFECTION, SITE NOT SPECIFIED Status: Acute Qualifiers: Urinary tract infection type: acute cystitis Hematuria presence: with hematuria Qualified Code(s): N30.01 - Acute cystitis with hematuria (4) Preeclampsia SNOMED Code(s): 979227226 Code(s): O14.90 - UNSPECIFIED PRE-ECLAMPSIA, UNSPECIFIED TRIMESTER Status: Acute Qualifiers: Trimester: third trimester Qualified Code(s): O14.93 - Unspecified pre- eclampsia, third trimester (5) Gestational diabetes requiring insulin SNOMED Code(s): 91386425, 942296739 Code(s): O24.414 - GESTATIONAL DIABETES IN , INSULIN CONTROLLED Status: Acute (6) Vaginal delivery SNOMED Code(s): 833140701 Code(s): O80 - ENCOUNTER FOR FULL-TERM UNCOMPLICATED DELIVERY Status: Acute - Problem List Review Problem List Initiated/Reviewed/Updated: Yes - My Orders Last 24 Hours: My Active Orders 11/08/20 10:16 Heat Therapy [OM.PC] PRN 11/09/20 05:46 Ready for Discharge [RC] PER UNIT ROUTINE - Assessment Assessment:: PPD#2 - Plan Plan:: * Routine cares * Has decided to switch to formula feeding GODMA2 * 2hr GTT at 6 weeks Preeclampsia without severe features * Monitor BP's closely, have been normal Fever * Resolved after delivery. Urine culture resulted today with only 60-70,000CFU of organism. As patient no longer breast feeding will discharge to complete 3 additional days of bactrim. She agrees.
== END 2020-11-09 11:30 | disposition home or self-care (01) | DRG 805 ==
LOC: JD.OBCHECK 19:04 → JD.OB 19:08 → JD.OBCHECK 23:55 → JD.OB 23:55 → UNDOADMOB 23:55 → OBSVTOIN 11-07 09:45 → INTOOBSV 11-07 09:45 → JD.OB 11-07 09:46 → OBSVTOIN 11-07 09:58 → JD.OB 11-07 09:58 → INTOOBSV 11-07 09:58 → UNDOADMOB 11-07 09:58
PROVIDERS: ADMIT Obstetrics & Gynecology; ATTEND Obstetrics & Gynecology
PROC: 10E0XZZ Delivery of Products of Conception, External Approach (ICD-10-PCS; principal; 2020-11-07)
PROC: 10907ZC Drainage of Amniotic Fluid, Therapeutic from Products of Conception, Via Natural or Artificial Opening (ICD-10-PCS; 2020-11-07)
PROC: 3E0R3BZ Introduction of Anesthetic Agent into Spinal Canal, Percutaneous Approach (ICD-10-PCS; 2020-11-07)
PROC: 00HU33Z Insertion of Infusion Device into Spinal Canal, Percutaneous Approach (ICD-10-PCS; 2020-11-07)
DX: O24.424 Gestational diabetes mellitus in childbirth, insulin controlled (principal); O75.3 Other infection during labor; Z37.0 Single live birth; O41.1230 Chorioamnionitis, third trimester, not applicable or unspecified; O14.04 Mild to moderate pre-eclampsia, complicating childbirth; O77.0 Labor and delivery complicated by meconium in amniotic fluid; Z3A.38 38 weeks gestation of pregnancy
CPT/HCPCS: 01967; 36415; 51702; 59025; 59409; 81001; 82565; 82570; 82947; 82962; 83615; 84156; 84450; 84460; 84520; 84550; 85025; 86592; 87086; 87088; 87186; A9270-GY; J0290; J0696; J1580; J2590; J3010; J3490; J7050; J7120

== ENCOUNTER 2023-12-12 18:48 | Emergency (ER) | payer BC, OTHER ==
[2023-12-12 19:49] LABS: APPEARANCE,URINE SLT CLOUDY (Clear); BILIRUBIN,URINE NEGATIVE (Negative); COLOR,URINE YELLOW (Yellow); GLUCOSE,URINE NEGATIVE (Negative); KETONES,URINE NEGATIVE (Negative); LEUKOCYTE ESTERASE,URINE NEGATIVE (Negative); NITRITE,URINE NEGATIVE (Negative); OCCULT BLOOD,URINE 2+ (Negative); PROTEIN,URINE 1+ (Negative); UROBILINOGEN,URINE 0.2 (0.2-1.0)
[2023-12-12 20:09] LABS: BACTERIA,URINE FEW /hpf (FEW); MUCUS,URINE FEW /hpf (FEW); RBC,URINE >100 /hpf (0-5); WBC,URINE 0-5 /hpf (0-5)
== END 2023-12-12 21:14 | disposition home or self-care (01) ==
LOC: JD.ED 18:48
DX: K59.00 Constipation, unspecified (principal); E66.9 Obesity, unspecified; Z68.41 Body mass index [BMI] 40.0-44.9, adult
CPT/HCPCS: 74018; 74018-26; 81001; 99284

== ENCOUNTER 2023-12-28 22:14 | Emergency (ER) | payer BC ==
[2023-12-29] MEDS: Ketorolac 30 MG/ML SDV IM ONE (00:37)
== END 2023-12-29 00:48 | disposition home or self-care (01) ==
LOC: JD.ED 22:14
DX: R07.89 Other chest pain (principal); E11.9 Type 2 diabetes mellitus without complications; E66.9 Obesity, unspecified; Z68.41 Body mass index [BMI] 40.0-44.9, adult
CPT/HCPCS: 71046; 81025; 96372; 99283; J1885

== ENCOUNTER 2025-06-10 07:26 | Inpatient (IN) | payer BC ==
[~2025-06-10 07:26] MED LIST: Sodium Chloride 0.9% 10 ML Syringe FLUSH PRN
[2025-06-10] MEDS ORDERED: Lactated Ringers 1,000 ML IV SCH (08:00)
[2025-06-10 08:23] LABS: BASOPHILS ABSOLUTE AUTO 0.0 K/mm3 (0.0-0.2); BASOPHILS PERCENT AUTO 0.3 % (0.0-1.0); EOSINOPHILS ABSOLUTE AUTO 0.1 K/mm3 (0.0-0.4); EOSINOPHILS PERCENT AUTO 0.7 % (0.0-6.0); IMMATURE GRAN ABSOLUTE AUTO 0.08 K/mm3 (0.00-0.05); IMMATURE GRAN PERCENT AUTO 0.7 % (0.0-0.4); LYMPHOCYTES ABSOLUTE AUTO 1.9 K/mm3 (1.0-4.8); LYMPHOCYTES PERCENT AUTO 18.0 % (24.0-44.0); MEAN PLATELET VOLUME 11.9 fl (9.4-12.3); MONOCYTES ABSOLUTE AUTO 0.7 K/mm3 (0.0-0.8); MONOCYTES PERCENT AUTO 6.5 % (0.0-8.0); NEUTROPHILS ABSOLUTE AUTO 7.9 K/mm3 (1.8-7.7); NEUTROPHILS PERCENT AUTO 73.8 % (41.0-71.0); NRBC ABSOLUTE 0.00 (0.00-0.02); NRBC PERCENT 0.0 % (0.0-0.2); PLATELET COUNT,PLT 224 K/mm3 (150-400); RED BLOOD CELL COUNT 4.65 M/mm3 (4.10-5.30); WHITE BLOOD CELL COUNT,WBC 10.69 K/mm3 (3.9-11.3)
[2025-06-10] MEDS ORDERED: Oxytocin/0.9 % Sodium Chloride 30 UNIT/500 ML BAG IV SCH (08:30)
[2025-06-10] MEDS: Sodium Chloride 0.9% 10 ML Syringe FLUSH SCH (08:50)
[2025-06-10 08:58] LABS: ALANINE AMINOTRANSFERASE,ALT 20.0 U/L (14-59); ASPARTATE AMNIOTRANSFERASE,AST 22.0 U/L (15-37); CREATININE 0.4 mg/dL (0.55-1.02); EST CRCL DRUG DOSING (CG) 161.17 mL/min; ESTIMATED GFR 136.0 mL/min (>60)
[2025-06-10] MEDS ORDERED: Sodium Chloride 0.9% 10 ML Syringe FLUSH SCH (09:00)
[2025-06-10] MEDS ORDERED: Morphine PF 10 MG/10 ML SDV ONE (11:11)
[2025-06-10] MEDS: Citric Acid/Sodium Citrate Solution 30 ML Cup PO ONE (11:25)
[2025-06-10] MEDS ORDERED: Ropivacaine 0.5% 5 MG/ML 30 ML SDV ONE (11:28)
[2025-06-10] MEDS ORDERED: Oxytocin/0.9 % Sodium Chloride 30 UNIT/500 ML BAG IV ONE (11:29)
[2025-06-10] MEDS ORDERED: Ondansetron 4 MG/2 ML SDV ONE (11:32)
[2025-06-10] MEDS ORDERED: Phenylephrine 1% 10 MG/ML SDV ONE (11:43)
[2025-06-10] MEDS ORDERED: fentaNYL 100 MCG/2 ML SDV IVPUSH PRN (12:15)
[2025-06-10] MEDS ORDERED: Ondansetron 4 MG/2 ML SDV IVPUSH PRN (12:15)
[2025-06-10] MEDS ORDERED: diphenhydrAMINE 50 MG/ML SDV IVPUSH PRN ×2 (12:15→14:16)
[2025-06-10] MEDS: Lactated Ringers 1,000 ML IV SCH (12:49)
[2025-06-10] MEDS ORDERED: Sodium Chloride 0.9% 10 ML Syringe FLUSH PRN (14:16)
[2025-06-10] MEDS ORDERED: Naloxone 0.4 MG/ML SDV IVPUSH PRN (14:16)
[2025-06-10] MEDS ORDERED: ePHEDrine 50 MG/ML SDV IVPUSH PRN (14:16)
[2025-06-10] MEDS: Ondansetron 4 MG/2 ML SDV IV PRN (15:50)
[2025-06-10] MEDS: Ketorolac 30 MG/ML SDV IVPUSH SCH (18:03)
[2025-06-11 05:49] LABS: MEAN PLATELET VOLUME 11.3 fl (9.4-12.3); NRBC ABSOLUTE 0.00 (0.00-0.02); NRBC PERCENT 0.0 % (0.0-0.2); PLATELET COUNT,PLT 193 K/mm3 (150-400); RED BLOOD CELL COUNT 4.01 M/mm3 (4.10-5.30); WHITE BLOOD CELL COUNT,WBC 11.13 K/mm3 (3.9-11.3)
== END 2025-06-12 11:30 | disposition home or self-care (01) | DRG 540 ==
LOC: JD.OB 07:26
PROVIDERS: ADMIT Obstetrics & Gynecology; ATTEND Obstetrics & Gynecology
PROC: 10D00Z1 Extraction of Products of Conception, Low, Open Approach (ICD-10-PCS; principal; 2025-06-10 12:00)
DX: O13.4 Gestational [pregnancy-induced] hypertension without significant proteinuria, complicating childbirth (principal); O24.424 Gestational diabetes mellitus in childbirth, insulin controlled; O99.214 Obesity complicating childbirth; Z3A.37 37 weeks gestation of pregnancy; Z37.0 Single live birth; O32.1XX0 Maternal care for breech presentation, not applicable or unspecified; Z79.82 Long term (current) use of aspirin; Z79.4 Long term (current) use of insulin; Z79.899 Other long term (current) drug therapy
CPT/HCPCS: 01967; 36415; 59025; 59414; 64488; 82565; 84450; 84460; 85025; 85027; 86592; 86850; 86900; 86901; 94762; A9270-GY; J1885; J2274; J2371; J2405; J2765; J2795; J7120; J7121